=== PATIENT | female | born 2005 | race Caucasian/White ===

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

== ENCOUNTER 2023-10-02 15:55 | Outpatient (CLI) | payer OTHER, SELFPAY ==
--- NOTE | ~2023-10-02 | US_ITS ---
EXAMINATION: US OB <=14 wk fetus w TV DATE: 10/02/2023 16:54 INDICATION: Spotting in the first trimester. TECHNIQUE: Real-time transabdominal and transvaginal pelvic ultrasound was performed. COMPARISON: None. FINDINGS: TRANSABDOMINAL ULTRASOUND: The uterus measures 7.9 x 4.8 x 7.8 cm. TRANSVAGINAL ULTRASOUND: There is an intrauterine gestational sac. A yolk sac is identified. The fet al crown rump length measures 4 mm, which correlates with an estimated gestational age of 6 weeks and 1 day(s) (+/-) 4 day(s). heart motion is identified measuring 59 beats per minute (bpm) by M-m ode Doppler. There is a subjectively large subchorionic hematoma measuring 2.5 x 6.0 cm. The right ov mitzy is not visualized. The left ovary measures 2.2 x 1.4 x 3.3 cm. There is no free fluid in the pelv is. IMPRESSION: 1. Single living intrauterine gestation with estimated date of delivery of 05/26/2024. 2. bradycardia. 3. Large subchorionic hematoma. Reviewed, dictated and finalized at location E. IMPRESSION: 1. Single living intrauterine gestation with estimated date of delivery of 05/26. 2. bradycardia. 3. Large subchorionic hematoma.
== END 2023-10-02 15:56 | disposition home or self-care (01) ==
LOC: ANHIMG 15:56
PROVIDERS: PCP Pediatrics; Visit Provider Obstetrics & Gynecology Gynecology
DX: O26.851 Spotting complicating pregnancy, first trimester (principal); Z3A.00 Weeks of gestation of pregnancy not specified
CPT/HCPCS: 76801; 76817

== ENCOUNTER 2023-10-15 11:03 | Outpatient (CLI) | payer OTHER, SELFPAY ==
--- NOTE | ~2023-10-15 | US_ITS ---
Pelvic ultrasound. Clinical History: First trimester , subchronic hemorrhage COMPARISON: 10/02/2023 Technique: Realtime transabdominal and transvaginal scanning of the pelvis was performed. Color flow Doppler and Doppler spectral analysis were performed. Findings: The uterus is anteverted, and contains an intrauterine gestation. Probable pole measu res 3 mm, compatible with estimated gestational age of 5 weeks 6 days. No cardiac activity seen. Ther e is complex fluid or debris throughout the gestational sac otherwise. The right ovary measures 4.4 x 2.9 x 2.9 cm. No significant right ovarian or adnexal mass is seen. The left ovary measures 4.0 x 1.9 x 2.3 cm. No significant left ovarian or adnexal mass is seen. There is trace free fluid in the cul de sac. Impression: Intrauterine gestation with estimated gestational age of 5 weeks 6 days, but no cardiac activity seen currently. There is extensive debris or complex fluid/blood products within the gestational sac. Fin dings suggest demise/missed . Reviewed, dictated and finalized at location . Impression: Intrauterine gestation with estimated gestational age of 5 weeks 6 days, but no cardiac activity seen currently. There is extensive debris or complex fluid/bl ood products within the gestational sac. Findings suggest demise/missed a bortion.
== END 2023-10-15 11:04 ==
PROVIDERS: PCP Pediatrics; Visit Provider Obstetrics & Gynecology Gynecology
DX: O20.8 Other hemorrhage in early pregnancy (principal); Z3A.01 Less than 8 weeks gestation of pregnancy
CPT/HCPCS: 76817